=== PATIENT | female | born 1970 | race Asian ===

== ENCOUNTER 2016-09-30 07:52 | Day surgery (SDC) | payer BC ==
[~2016-09-30] VITALS: Ht 160 cm; Wt 57.2 kg
[2016-09-30] MEDS ORDERED: fentaNYL CITRATE/PF 100 MCG/2 ML AMP ONE (08:08)
[2016-09-30] MEDS ORDERED: SIMETHICONE 40 MG/0.6 ML ML ONE ×2 (08:09→09:53)
[2016-09-30] MEDS ORDERED: MIDAZOLAM HCL 5 MG/5 ML VIAL ONE (08:09)
[2016-09-30 08:48] LABS: HCG,QUAL RESULT NEGATIVE (NEGATIVE)
[2016-09-30] MEDS: fentaNYL CITRATE/PF 100 MCG/2 ML AMP ONE ×2 (09:46→09:50)
[2016-09-30] MEDS: MIDAZOLAM HCL 5 MG/5 ML VIAL ONE ×2 (09:48→09:53)
[2016-09-30 14:37] VITALS: BP_SYST 111
== END 2016-09-30 11:30 | disposition home or self-care (01) ==
LOC: SDS 07:52
PROVIDERS: ATTEND Internal Medicine
DX: Z12.11 Encounter for screening for malignant neoplasm of colon (principal); K57.30 Diverticulosis of large intestine without perforation or abscess without bleeding; K64.8 Other hemorrhoids; Z80.0 Family history of malignant neoplasm of digestive organs; E78.00 Pure hypercholesterolemia, unspecified
CPT/HCPCS: 45378; 84703; J2250; J3010; J7030; 45380

== ENCOUNTER 2023-06-14 07:52 | Day surgery (SDC) | payer BC, OTHER ==
[2023-06-12 11:03] LABS: BILIRUBIN,URINE NEGATIVE (NEGATIVE); BLOOD, URINE 2+ (NEGATIVE); COLOR,URINE YELLOW (YELLOW); GLUCOSE,URINE NEGATIVE (NEGATIVE); KETONES,URINE NEGATIVE (NEGATIVE); LEUKOCYTE ESTERASE ,URINE NEGATIVE (NEGATIVE); NITRITE, URINE NEGATIVE (NEGATIVE); PROTEIN URINE NEGATIVE (NEGATIVE); UROBILINOGEN,URINE 0.2 (0.2-1.0)
[2023-06-12 11:04] LABS: CLARITY/URINE SLIGHTLY HAZY (CLEAR)
[2023-06-12 11:04] LABS: BASOPHILS % (AUTO) 0.8 % (0.0-2.0); EOSINOPHILS % (AUTO) 0.8 % (0.0-4.0); HEMATOCRIT 39.4 % (36-48); HEMOGLOBIN 13.2 g/dL (12.0-16.0); LYMPHOCYTES # (AUTO) 1.4 K/uL (1.0-5.5); LYMPHOCYTES % (AUTO) 27.5 % (20.5-51.5); MEAN CORPUSCULAR HEMOGLOBIN 32 pg (27-31); MEAN CORPUSCULAR HGB CONC 34 % (32-36); MEAN CORPUSCULAR VOLUME 94 fL (79.0-98.0); MONOCYTES # (AUTO) 0.3 K/uL (0.0-1.0); NEUTROPHILS # (AUTO) 3.2 K/uL (1.8-7.7); NEUTROPHILS % (AUTO) 64.9 % (40.0-70.0); PLATELET COUNT (AUTO) 288 K/uL (130-430); RED BLOOD CELL COUNT(AUTO) 4.17 MIL/uL (4.2-6.2); RED CELL DISTRIBUTION WIDTH 13.3 % (9.0-15.0)
[2023-06-12 11:18] LABS: BACTERIA,URINE RARE /HPF (None Seen); WBC,URINE NONE SEEN /HPF (0-3)
[~2023-06-14] VITALS: Ht 160 cm; Wt 49.9 kg
[~2023-06-14 07:52] MED LIST: CEFAZOLIN 2 GM IVPB PREMIX 50 ML IV ONE
[2023-06-14] MEDS ORDERED: PROPOFOL 200MG/ 20ML VIAL (DIPRIVAN) IV ONE (09:03)
[2023-06-14] MEDS ORDERED: SEVOFLURANE 15 MIN GAS INH ONE (09:03)
[2023-06-14] MEDS ORDERED: MIDAZOLAM HCL/PF 2 MG/2 ML SYRINGE ONE (09:03)
[2023-06-14] MEDS ORDERED: fentaNYL CITRATE/PF 100 MCG/2 ML AMP ONE (09:03)
[2023-06-14] MEDS ORDERED: ePHEDrine sulfate 50 MG/ML VIAL ONE (09:03)
[2023-06-14] MEDS ORDERED: DEXAMETHASONE SOD PHOSPHATE 4 MG/ML VIAL ONE (09:03)
[2023-06-14 09:30] VITALS: O2SAT 99
[2023-06-14] MEDS ORDERED: MORPHINE 4 MG INJ. 4 MG/ML VIAL IVP PRN ×2 (10:15)
[2023-06-14] MEDS ORDERED: OXYCODONE/ACETAMINOPHEN 5-325 TABLET PO PRN ×2 (10:15)
[2023-06-14] MEDS ORDERED: ONDANSETRON HCL 4 MG/2 ML VIAL IVP PRN ×2 (10:15)
[2023-06-14] MEDS ORDERED: HYDROcodone/ACETAMIN 5-325 MG TAB (NORCO/ VICODIN) PO PRN (10:15)
[2023-06-14] MEDS ORDERED: METOCLOPRAMIDE HCL 10 MG/2 ML VIAL IVP PRN (10:15)
[2023-06-14] MEDS ORDERED: HYDROmorphone 1 MG/ML INJ. CARTRIDGE IVP PRN (10:15)
[2023-06-14 11:37] VITALS: BP_SYST 128; PULSE 65; RESP 16
== END 2023-06-14 12:00 | disposition home or self-care (01) ==
LOC: SDS 07:52 → SMU 07:53 → SDS 12:00
PROVIDERS: ATTEND Specialist
DX: Z30.432 Encounter for removal of intrauterine contraceptive device (principal); N95.2 Postmenopausal atrophic vaginitis; E78.00 Pure hypercholesterolemia, unspecified; Z80.0 Family history of malignant neoplasm of digestive organs; Z79.899 Other long term (current) drug therapy
CPT/HCPCS: 81000; 81001; 84702; 85025; 87081; 36415; 58562; 88300; 88305; J0690; J1100; J3465; J2704; J3010; 81015